=== PATIENT | male | born 1985 | race Caucasian/White ===

== ENCOUNTER 2024-03-14 11:29 | Outpatient (AMB) | payer OTHER, SELFPAY ==
[2024-03-14 11:53] VITALS: BP 126/80; PULSE 80; RESP 12; O2SAT 97; BMI 21.6
--- NOTE | 2024-03-14 11:53 | AM.OFFWIN_ITS ---
Intake Vital Signs 03/14/24 11:53 Height 5 ft 5 in Weight 130 lb BMI 21.6 BP 126/80 Blood Pressure Location Rt brachial Position Sitting Respiration 12 Pulse 80 Pulse Source Pulse Oximeter Pulse Oximetry (%) 97 Oxygen Delivery Method Room Air Intake Visit Reasons: Seizure like activity Intake Note: Patient reports he has been experiencing neurological issues related to micro seizure activity, patient reports at time he will snap back. Patient reports he finds himself squeezing his right hand subconsciously. Patient reports he quit drinking alcohol 07/16/2019. Patient reports he discontinued all medications in October 2023. Patient Tobacco Use Status: Current everyday Tobacco user (20+ years) [employer] Professor Required: No Accompanied by: Self / Same As Patient Allergies No Known Allergies Allergy (Verified 03/14/24 12:01) Do you need a note to return to daycare/school/sports/work: Yes HPI HPI Comments History of Present Illness Details 38-year-old male here today in the walk- in. As I entered the room and asked him the reason for his visit today, he was unable to answer the question. He started rambling on about being at the doctors, should he go to the hospital, I have an account here, I am here to get help and I think I should go to the hospital. It has been awhile since anybody asked me how I was. I found it easy to talk to my friends lately. These comments were not in proper response to any of the questions or conversation that I was having him at the time. When I tried to redirect him and ask things about when his seizure history started, when his last seizure was, any medications he became very upset and said that he was getting grilled with questions and he does not understand why he is getting grilled with questions if he is here for help. He continued to say that he needs to go to the emergency room because his health care is serious. I tried several times to redirect him to elicit why he was here at the walk-in today. Unfortunately after several failed attempts, the patient got up and walked out of the visit stating I am going to go to the hospital. ROS unobtainable Exam Awake alert, bizarre mood and affect Speaking in full sentences PFSH Social History Patient Tobacco Use Status: Current everyday Tobacco user (20+ years) Physical Exam Vital Signs: Last Vital Signs Pulse 80 03/14/24 11:53 Resp 12 03/14/24 11:53 BP 126/80 03/14/24 11:53 Pulse Ox 97 03/14/24 11:53 Oxygen Delivery Method Room Air 03/14/24 11:53 BMI result Body Mass Index 21.6 Assessment & Plan Assessment & Plan (1) Bizarre behavior: Code(s): R46.2 - Strange and inexplicable behavior Plan: This note is constructed using voice recognition software. While every effort has been made to ensure accuracy in underwriter solicitation director, still errors may have been included Sometimes, these errors may affect the content or meaning of the given sentence . Total time spent caring for the patient today was 20 minutes. This includes time spent before the visit reviewing the chart, time spent during the visit, and time spent after the visit on documentation Plan . Coding Level of Care Code Est Pt Level 3 (27203) Diagnoses Bizarre behavior R46.2
== END 2024-03-14 12:47 | disposition home or self-care (01) ==
PROVIDERS: Visit Provider Nurse Practitioner Family
DX: R46.2 Strange and inexplicable behavior (principal)
CPT/HCPCS: 99213